=== PATIENT | female | born 1980 | race Caucasian/White ===

== ENCOUNTER 2021-07-27 09:22 | Emergency (ER) | payer BC, MEDICAID, OTHER ==
[2021-07-29 22:08] VITALS: BP 128/62; PULSE 82
== END 2021-07-27 11:00 | disposition home or self-care (01) ==
LOC: LL.ED 09:22
DX: M25.512 Pain in left shoulder (principal); M25.532 Pain in left wrist; Z88.6 Allergy status to analgesic agent; Z91.013 Allergy to seafood; Z88.5 Allergy status to narcotic agent; Z88.0 Allergy status to penicillin; W00.0XXA Fall on same level due to ice and snow, initial encounter
CPT/HCPCS: 73030-LT; 73110-LT; 99283-25